=== PATIENT | female | born 1980 | race Caucasian/White ===

== ENCOUNTER 2017-09-02 23:43 | Emergency (ER) | payer OTHER ==
[~2017-09-02] VITALS: Ht 170.2 cm; Wt 65.8 kg
--- NOTE | 2017-09-02 23:47 | ER Report ---
History and Physical Time Seen By MD: 23:47 HPI/ROS CHIEF COMPLAINT: Vaginal spotting, 13 weeks HISTORY OF PRESENT ILLNESS: 37-year-old female, G2, P2, Ab1 at 13 weeks by dates. Patient notes spontaneous bright red bleeding tonight. 30 minutes prior to arrival. She notes no abdominal cramping pain or discomfort. She is followed by HUMAN RELATIONS MANAGER down in [place]. She's had no ultrasounds. Her diagnostic studies. Patient denies dysuria, frequency or hematuria. Patient's had no fever or chills. REVIEW OF SYSTEMS: Respiratory: No cough, no dyspnea. Cardiovascular: No chest pain, no palpitations. Gastrointestinal: No vomiting, no abdominal pain. Musculoskeletal: No back pain. Allergies: Coded Allergies: No Known Drug Allergies (Unverified , 09/03/17) Home Meds Reported Medications Vits #93/Iron Fum/Fa ( FORMULA TABLET) 1 Each Tablet, 1 EACH PO DAILY 09/03/17 Reviewed Nurses Notes: Yes Old Medical Records Reviewed: Yes Constitutional Vital Sign - Last 24 Hours 09/03/17 09/03/17 09/03/17 09/03/17 00:01 00:30 01:00 01:30 Temp 98.3 Pulse 72 68 65 66 Resp 14 14 14 14 B/P (MAP) 157/83 120/88 (99) 122/82 (95) 120/78 (92) Pulse Ox 96 98 98 98 O2 Delivery Room Air Room Air Room Air Room Air 09/03/17 09/03/17 02:00 02:49 Pulse 62 72 Resp 14 B/P (MAP) 124/84 (97) 144/88 (106) Pulse Ox 97 94 O2 Delivery Room Air Room Air Physical Exam General Appearance: The patient is alert, has no immediate need for airway protection and no current signs of toxicity. Vital signs stable, afebrile, pulse ox normal Eyes: Pupils equal and round no injection. Respiratory: Chest is non tender, lungs are clear to auscultation. Cardiac: regular rate and rhythm Gastrointestinal: Abdomen is soft and non tender, gravid, consistent with dates , no masses, bowel sounds normal. Pelvic: Dark blood in the vaginal vault. Os appears closed Musculoskeletal: Neck: Neck is supple and non tender. Extremities have full range of motion and are non tender. Skin: No rashes or lesions. DIFFERENTIAL DIAGNOSIS: After history and physical exam differential diagnosis was considered for vaginal bleeding including but not limited to ectopic , menses, miscarriage, subchorionic hemorrhage and dysfunctional uterine bleeding. Medical Decision Making Data Points Result Diagram: 09/02/17 0645 09/02/17 4285 Laboratory Hematology Test 09/02/17 23:55 09/03/17 00:00 Red Blood Count 4.76 M/uL (4.17-5.56) Mean Corpuscular Volume 88.5 fL (80.0-96.0) Mean Corpuscular Hemoglobin 30.1 pg (26.0-33.0) Mean Corpuscular Hemoglobin Concent 34.0 g/dL (32.0-36.0) Red Cell Distribution Width 16.5 % (11.5-14.5) Mean Platelet Volume 8.1 fL (7.2-11.1) Neutrophils (%) (Auto) 62.8 % (39.4-72.5) Lymphocytes (%) (Auto) 24.7 % (17.6-49.6) Monocytes (%) (Auto) 9.1 % (4.1-12.4) Eosinophils (%) (Auto) 2.9 % (0.4-6.7) Basophils (%) (Auto) 0.5 % (0.3-1.4) Nucleated RBC Relative Count (auto) 0.0 /100WBC Neutrophils # (Auto) 5.9 K/uL (2.0-7.4) Lymphocytes # (Auto) 2.3 K/uL (1.3-3.6) Monocytes # (Auto) 0.9 K/uL (0.3-1.0) Eosinophils # (Auto) 0.3 K/uL (0.0-0.5) Basophils # (Auto) 0.0 K/uL (0.0-0.1) Nucleated RBC Absolute Count (auto) 0.00 K/uL Prothrombin Time 11.2 seconds (12.0-14.4) Prothromb Time International Ratio 0.81 Activated Partial Thromboplast Time 29 seconds (23-35) Sodium Level 135 mmol/L (137-145) Potassium Level 3.3 mmol/L (3.5-5.0) Chloride Level 100 mmol/L (98-107) Carbon Dioxide Level 22 mmol/L (22-31) Blood Urea Nitrogen 9 mg/dl (7-18) Creatinine 0.60 mg/dl (0.52-1.04) Glomerular Filtration Rate Calc > 60.0 Random Glucose 92 mg/dl (75-110) Calcium Level 9.5 mg/dl (8.4-10.2) Total Bilirubin 0.4 mg/dl (0.2-1.3) Aspartate Amino Transf (AST/SGOT) 21 U/L (0-35) Alanine Aminotransferase (ALT/SGPT) 29 U/L (0-56) Alkaline Phosphatase 50 U/L (0-126) Total Protein 7.7 gm/dl (6.3-8.2) Albumin 4.3 g/dl (3.5-5.0) Human Chorionic Gonadotropin, Qual Positive (NEGATIVE) Human Chorionic Gonadotropin, Quant [id number] mIU/ml Urine Color Colorless Urine Clarity Clear Urine pH 7.0 pH (4.8-9.5) Urine Specific [place] 1.003 Urine Protein Negative mg/dL (NEGATIVE) Urine Glucose (UA) Negative mg/dL (NEGATIVE) Urine Ketones Negative mg/dL (NEGATIVE) Urine Blood Moderate (NEGATIVE) Urine Nitrite Negative (NEGATIVE) Urine Bilirubin Negative (NEGATIVE) Urine Urobilinogen Negative mg/dL (0.2-1.9) Urine Leukocyte Esterase Negative (NEGATIVE) Urine RBC <1 /HPF (0-2/HPF) Urine WBC None /HPF (0-5/HPF) Urine Squamous Epithelial Cells None /LPF (</=FEW) Urine Bacteria Negative /HPF (NONE-FEW) Urine Mucus None /HPF (NONE-FEW) Chemistry Test 09/02/17 23:55 09/03/17 00:00 White Blood Count 9.4 k/uL (4.5-11.0) Red Blood Count 4.76 M/uL (4.17-5.56) Hemoglobin 14.3 g/dL (12.0-16.0) Hematocrit 42.1 % (34.0-47.0) Mean Corpuscular Volume 88.5 fL (80.0-96.0) Mean Corpuscular Hemoglobin 30.1 pg (26.0-33.0) Mean Corpuscular Hemoglobin Concent 34.0 g/dL (32.0-36.0) Red Cell Distribution Width 16.5 % (11.5-14.5) Platelet Count 261 K/uL (150-450) Mean Platelet Volume 8.1 fL (7.2-11.1) Neutrophils (%) (Auto) 62.8 % (39.4-72.5) Lymphocytes (%) (Auto) 24.7 % (17.6-49.6) Monocytes (%) (Auto) 9.1 % (4.1-12.4) Eosinophils (%) (Auto) 2.9 % (0.4-6.7) Basophils (%) (Auto) 0.5 % (0.3-1.4) Nucleated RBC Relative Count (auto) 0.0 /100WBC Neutrophils # (Auto) 5.9 K/uL (2.0-7.4) Lymphocytes # (Auto) 2.3 K/uL (1.3-3.6) Monocytes # (Auto) 0.9 K/uL (0.3-1.0) Eosinophils # (Auto) 0.3 K/uL (0.0-0.5) Basophils # (Auto) 0.0 K/uL (0.0-0.1) Nucleated RBC Absolute Count (auto) 0.00 K/uL Prothrombin Time 11.2 seconds (12.0-14.4) Prothromb Time International Ratio 0.81 Activated Partial Thromboplast Time 29 seconds (23-35) Glomerular Filtration Rate Calc > 60.0 Calcium Level 9.5 mg/dl (8.4-10.2) Total Bilirubin 0.4 mg/dl (0.2-1.3) Aspartate Amino Transf (AST/SGOT) 21 U/L (0-35) Alanine Aminotransferase (ALT/SGPT) 29 U/L (0-56) Alkaline Phosphatase 50 U/L (0-126) Total Protein 7.7 gm/dl (6.3-8.2) Albumin 4.3 g/dl (3.5-5.0) Human Chorionic Gonadotropin, Qual Positive (NEGATIVE) Human Chorionic Gonadotropin, Quant [id number] mIU/ml Urine Color Colorless Urine Clarity Clear Urine pH 7.0 pH (4.8-9.5) Urine Specific [place] 1.003 Urine Protein Negative mg/dL (NEGATIVE) Urine Glucose (UA) Negative mg/dL (NEGATIVE) Urine Ketones Negative mg/dL (NEGATIVE) Urine Blood Moderate (NEGATIVE) Urine Nitrite Negative (NEGATIVE) Urine Bilirubin Negative (NEGATIVE) Urine Urobilinogen Negative mg/dL (0.2-1.9) Urine Leukocyte Esterase Negative (NEGATIVE) Urine RBC <1 /HPF (0-2/HPF) Urine WBC None /HPF (0-5/HPF) Urine Squamous Epithelial Cells None /LPF (</=FEW) Urine Bacteria Negative /HPF (NONE-FEW) Urine Mucus None /HPF (NONE-FEW) Coagulation Test 09/02/17 23:55 Prothrombin Time 11.2 seconds Prothromb Time International Ratio 0.81 Activated Partial Thromboplast Time 29 seconds Urinalysis Test 09/03/17 00:00 Urine Color Colorless Urine Clarity Clear Urine pH 7.0 pH (4.8-9.5) Urine Specific [place] 1.003 Urine Protein Negative mg/dL (NEGATIVE) Urine Glucose (UA) Negative mg/dL (NEGATIVE) Urine Ketones Negative mg/dL (NEGATIVE) Urine Blood Moderate (NEGATIVE) Urine Nitrite Negative (NEGATIVE) Urine Bilirubin Negative (NEGATIVE) Urine Urobilinogen Negative mg/dL (0.2-1.9) Urine Leukocyte Esterase Negative (NEGATIVE) Urine RBC <1 /HPF (0-2/HPF) Urine WBC None /HPF (0-5/HPF) Urine Squamous Epithelial Cells None /LPF (</=FEW) Urine Bacteria Negative /HPF (NONE-FEW) Urine Mucus None /HPF (NONE-FEW) EKG/Imaging Imaging Results: Ultrasound of the OB less than 14 weeks was obtained. The results of the study are EXAMINATION: Ultrasound twin transabdominal OB > 14 weeks with anatomic evaluation HISTORY: Vaginal bleeding. . LMP 05/31/2017. COMPARISON: None. TECHNIQUE: Transabdominal imaging was performed for assessment of the twin fetus and maternal pelvic structures. Transvaginal imaging was not performed. FINDINGS: Placenta: Anterior and posterior placenta. There is a small fluid collection measuring up to 1.1 cm between the 2 placenta, slightly below the twin peak sign. There is no previa of the posterior placenta. The relationship of the anterior placenta to the internal cervical os is not visualized on this exam. Uterus: Gravid. There is a 9.2 x 8.1 x 6.3 cm echogenic lesion along the posterior lower uterine segment, which may be arising from the uterus. There is a 6.6 x 6.3 x 5.0 cm echogenic lesion at the fundus posteriorly, which may be arising from the uterus. Cervix: Long and closed. Maternal adnexa/ovaries: Not imaged. Intrauterine gestations: two. Please note the lumber bearer incorrectly labeled the fetuses, labeling the more inferior fetus as fetus B. I am using the conventional imaging, with the more inferior fetus being fetus A and the more superior fetus being fetus B. Location Fetus A: Inferior Location Fetus B: Superior Membrane Fetus A and B: Thick intertwin membrane. Placenta Locations: Anterior and posterior. Estimated gestational age by LMP: 13 weeks / 4 days, 03/07/2018 Fetus A: Estimated gestational age of 14 weeks 0 days based on average crown-rump length of 8 cm. ROSEMARIE 03/04/2018 Heart rate is 142 bpm. Fetus B: Estimated gestational age of 13 weeks 6 days based on average crown-rump length of 7.8 cm. ROSEMARIE 03/05/2018 Heart rate is 144 bpm. IMPRESSION: 1. Live twin intrauterine gestation, dichorionic and diamniotic. (Please note lumber bearer incorrectly labeled the fetuses as described above, I used the conventional naming B). [place]-rump lengths are concordant with given LMP dates of 13 weeks 4 days. ROSEMARIE based on LMP is 03/07/2018. 2. Anterior and posterior placenta. No previa of the posterior placenta. Relationship of the internal cervical os to the anterior placenta is not demonstrated on this exam. 3. 1.1 cm fluid collection between the 2 placenta. This may be a placental venous garnica or small hemorrhage. 4. 2 echogenic lesions measuring up to 9.2 cm at the posterior lower uterine segment and 6.6 cm at the posterior fundus. These are suspicious for subserosal fibroids, and they do not project into the uterine cavity. The study was read by the radiologist. I viewed the images myself on the PACS system. ED Course/Re-evaluation Clinical Indication for ER IV: Hydration, IV Access ED Course Patient was admitted to an examination room. H&P was done. The differential diagnoses was considered. On clinical examination. Patient has vaginal spotting. She is a proximal with 13 weeks . Patient's treated with IV fluid, Zofran. An ultrasound is performed. The ultrasound shows intact live twin . She was notified of her results. She is provided a copy of the ultrasound report as well as a district back to her HUMAN RELATIONS MANAGER. Patient's advised bed rest until follow-up on Friday 09/08 with her HUMAN RELATIONS MANAGER. Patient cautioned return to the ER for any heavy bleeding. Decision to Disposition Date: Sep 03, 2017 Decision to Disposition Time: 02:36 Depart Departure Latest Vital Signs Vital Signs Date Time Temp Pulse Resp B/P (MAP) Pulse Ox O2 Delivery O2 Flow Rate FiO2 09/03/17 02:49 72 144/88 (106) 94 Room Air 09/03/17 02:00 14 09/03/17 00:01 98.3 Impression: Primary Impression: Vaginal spotting Additional Impression: Twin Condition: Improved Disposition: HOME OR SELF-CARE Patient Instructions: Threatened Miscarriage (ED) Additional Instructions: Remain at bedrest and to follow-up with your primary OB Problem Qualifiers Additional Impression: Twin Multiple gestation type: unspecified Trimester: second trimester Qualified Codes: O30.002 - Twin , unspecified number of placenta and unspecified number of amniotic sacs, second trimester GUILHERME ISRAEL DO Sep 02, 2017 23:47
[2017-09-02] MEDS ORDERED: NS(*) 0.9% 1000 ML BAG 1,000 ML IV ONE (23:48)
[2017-09-03] MEDS ORDERED: PREN-161 PO (00:01)
[2017-09-03 00:11] LABS: PLATELET COUNT, AUTOMATED 261 K/uL (150-450)
[2017-09-03 00:17] LABS: INR 0.81
--- NOTE | 2017-09-03 02:35 | RADIOLOGY IMAGING REPORT ---
FAC[place] [facility] [place] NAME: Chelsie Do : 1980 MR: [id number] V: [id number] EXAM DATE: ORDERING PHYSICIAN: GUILHERME ISRAEL TECHNOLOGIST: Location[place] [facility] [place] Patient: Chelsie Do : 1980 Visit/Account:[id number] Date of Sevice: 09/02/2017 EXAMINATION: Ultrasound twin transabdominal OB > 14 weeks with anatomic evaluation HISTORY: Vaginal bleeding. . LMP 05/31/2017. COMPARISON: None. TECHNIQUE: Transabdominal imaging was performed for assessment of the twin fetus and maternal pelvic structur es. Transvaginal imaging was not performed. FINDINGS: Placenta: Anterior and posterior placenta. There is a small fluid collection measuring up to 1.1 cm between the 2 placenta, slightly below the twin peak sign. There is no previa of the posterior placen ta. The relationship of the anterior placenta to the internal cervical os is not visualized on this e xam. Uterus: Gravid. There is a 9.2 x 8.1 x 6.3 cm echogenic lesion along the posterior lower uterine segm ent, which may be arising from the uterus. There is a 6.6 x 6.3 x 5.0 cm echogenic lesion at the fund us posteriorly, which may be arising from the uterus. Cervix: Long and closed. Maternal adnexa/ovaries: Not imaged. Intrauterine gestations: two. Please note the production aide incorrectly labeled the fetuses, labeling t he more inferior fetus as fetus B. I am using the conventional imaging, with the more inferior fetus being fetus A and the more superior fetus being fetus B. Location Fetus A: Inferior Location Fetus B: Superior Membrane Fetus A and B: Thick intertwin membrane. Placenta Locations: Anterior and posterior. Estimated gestational age by LMP: 13 weeks / 4 days, 03/07/2018 Fetus A: Estimated gestational age of 14 weeks 0 days based on average crown-rump length of 8 cm. ROSEMARIE 8 Heart rate is 142 bpm. Fetus B: Estimated gestational age of 13 weeks 6 days based on average crown-rump length of 7.8 cm. ROSEMARIE 03/05/20 18 Heart rate is 144 bpm. IMPRESSION: 1. Live twin intrauterine gestation, dichorionic and diamniotic. (Please note production aide incorrectly labeled the fetuses as described above, I used the conventional naming B). [place]-rump lengths are co ncordant with given LMP dates of 13 weeks 4 days. ROSEMARIE based on LMP is 03/07/2018. 2. Anterior and posterior placenta. No previa of the posterior placenta. Relationship of the internal cervical os to the anterior placenta is not demonstrated on this exam. 3. 1.1 cm fluid collection between the 2 placenta. This may be a placental venous garnica or small hemor rhage. 4. 2 echogenic lesions measuring up to 9.2 cm at the posterior lower uterine segment and 6.6 cm at th e posterior fundus. These are suspicious for subserosal fibroids, and they do not project into the ut erine cavity. Report Dictated By: Dayami Kaur MD at 09/03/2017 2:05 AM Report E-Signed By: Dayami Kaur MD at 09/03/2017 2:31 AM [id number]
[2017-09-03 02:49] VITALS: BP 144/88
== END 2017-09-03 02:58 | disposition home or self-care (01) ==
LOC: ER 23:52
DX: O20.9 Hemorrhage in early pregnancy, unspecified (principal); O30.002 Twin pregnancy, unspecified number of placenta and unspecified number of amniotic sacs, second trimester
CPT/HCPCS: 76805; 81001; 84702; 84703; 85025; 85610; 85730; 86850; 86900; 86901; 99284; J7030; 82040; 82247; 82310; 82374; 82435; 82565; 82947; 84075; 84132; 84155; 84295; 84450; 84460; 84520

== ENCOUNTER → 2017-09-27 | Outpatient (CLI) | payer OTHER ==
[~2017-09-27] MED LIST: PREN-161 PO
== END ==
LOC: LAB 13:28
DX: Z01.30 Encounter for examination of blood pressure without abnormal findings (principal); O30.039 Twin pregnancy, monochorionic/diamniotic, unspecified trimester
CPT/HCPCS: 36415; 82575; 84156